=== PATIENT | male | born 1985 | race Caucasian/White ===

== ENCOUNTER 2021-08-12 09:42 | Inpatient (IN) | payer OTHER ==
[2021-08-12 10:42] VITALS: BMI 35.4
[2021-08-12] MEDS ORDERED: MENTHOL/PHENOL 1 EACH UD MM PRN (13:05)
[2021-08-12] MEDS ORDERED: METHOCARBAMOL 500 MG TABLET PO PRN (13:05)
[2021-08-12] MEDS ORDERED: MAGNESIUM CITRATE 300 ML BOTTLE PO PRN (13:05)
[2021-08-12] MEDS ORDERED: LORazepam 1 MG TABLET PO PRN (13:05)
[2021-08-12] MEDS ORDERED: MAGNESIUM HYDROX 2400MG/30ML ORAL SUSPENSION 30 ML CUP PO PRN (13:05)
[2021-08-12] MEDS ORDERED: ONDANSETRON *ODT* 4 MG TABLET SL PRN (13:05)
[2021-08-12] MEDS ORDERED: ACETAMINOPHEN 325 MG TABLET (FP) PO PRN ×2 (13:05)
[2021-08-12] MEDS ORDERED: IBUPROFEN 400 MG TABLET (FP) PO PRN (13:05)
[2021-08-12] MEDS ORDERED: MAG HYDROX/AL HYDROX/SIMETH 30 ML UNIT-DOSE CUP PO PRN (13:05)
[2021-08-12] MEDS ORDERED: BISMUTH SUBSALICYLATE 524 MG/30 ML PO PRN (13:05)
[2021-08-12] MEDS: hydrOXYzine PAMOATE 25 MG CAPSULE (FP) PO SCH ×3 (15:26→22:13)
[2021-08-12] MEDS: LORazepam 2 MG TABLET PO SCH ×2 (17:55→22:13)
[2021-08-12] MEDS: MELATONIN 5 MG TABLETS PO SCH (22:13)
[2021-08-12] MEDS: THIAMINE HCL 100 MG TABLET (FP) PO SCH (22:13)
[2021-08-13] MEDS: LORazepam 2 MG TABLET PO SCH ×4 (05:25→22:25)
[2021-08-13] MEDS: hydrOXYzine PAMOATE 25 MG CAPSULE (FP) PO SCH ×6 (05:25→22:25)
[2021-08-13] MEDS: LOSARTAN 50MG/HCTZ 12.5MG 1 TAB PO SCH (10:14)
[2021-08-13] MEDS: PRENATAL VITAMINS W/ FOLIC ACID TABLET (FP) PO SCH (10:14)
[2021-08-13 11:33] LABS: HEMATOCRIT 36.1 % (35.4-49); HEMOGLOBIN 12.7 GM/dL (11.7-16.9); MCH 33.2 pg (25.7-33.7); MCHC 35.1 g/dl (32.0-35.9); MEAN CELL VOLUME 94.6 fl (80-96); MEAN PLT VOLUME 8.1 fl (7.5-11.1); PLATELET COUNT 125 10^3/uL (134-434); RBC 3.82 M/mm3 (4.00-5.60); RDW 14.2 % (11.9-15.9); WHITE BLOOD COUNT 2.9 K/mm3 (4.0-10.0)
[2021-08-13 11:54] LABS: CALCIUM 8.9 mg/dL (8.5-10.1)
[2021-08-13 11:55] LABS: ALBUMIN 3.5 g/dl (3.4-5.0); BLOOD UREA NITROGEN 5.5 mg/dL (7-18)
[2021-08-13 11:58] LABS: CREATININE 0.9 mg/dL (0.55-1.3)
[2021-08-13 11:59] LABS: BILIRUBIN,TOTAL 0.9 mg/dL (0.2-1)
[2021-08-13 12:00] LABS: TOT PROT 7.2 g/dl (6.4-8.2)
[2021-08-13] MEDS: THIAMINE HCL 100 MG TABLET (FP) PO SCH (22:25)
[2021-08-13] MEDS: MELATONIN 5 MG TABLETS PO SCH (22:26)
[2021-08-14] MEDS: LORazepam 1 MG TABLET PO SCH ×4 (05:40→22:09)
[2021-08-14] MEDS: hydrOXYzine PAMOATE 25 MG CAPSULE (FP) PO SCH ×5 (05:40→22:09)
[2021-08-14] MEDS: LOSARTAN 50MG/HCTZ 12.5MG 1 TAB PO SCH (10:31)
[2021-08-14] MEDS: PRENATAL VITAMINS W/ FOLIC ACID TABLET (FP) PO SCH (10:31)
[2021-08-14] MEDS: risperiDONE 2 MG TABLET PO SCH (10:31)
[2021-08-14] MEDS: SERTRALINE HCL 50 MG TABLET (FP) PO SCH (10:31)
[2021-08-14] MEDS: MELATONIN 5 MG TABLETS PO SCH (22:11)
[2021-08-14] MEDS: THIAMINE HCL 100 MG TABLET (FP) PO SCH (22:12)
[2021-08-15] MEDS ORDERED: LORazepam 0.5 MG TABLET PO PRN
[2021-08-15] MEDS: LORazepam 0.5 MG TABLET PO SCH ×2 (05:25→10:20)
[2021-08-15] MEDS: hydrOXYzine PAMOATE 25 MG CAPSULE (FP) PO SCH ×3 (05:26→13:16)
[2021-08-15 09:19] VITALS: TEMP 96.8
[2021-08-15] MEDS: risperiDONE 2 MG TABLET PO SCH (10:19)
[2021-08-15] MEDS: SERTRALINE HCL 50 MG TABLET (FP) PO SCH (10:19)
[2021-08-15] MEDS: LOSARTAN 50MG/HCTZ 12.5MG 1 TAB PO SCH (10:19)
[2021-08-15] MEDS: PRENATAL VITAMINS W/ FOLIC ACID TABLET (FP) PO SCH (10:19)
[2021-08-15 13:30] VITALS: BP 137/98; PULSE 111
[2021-08-16] MEDS ORDERED: LORazepam 0.5 MG TABLET PO ONE (05:00)
== END 2021-08-15 13:59 | disposition home or self-care (01) | DRG 775 ==
LOC: YASAS 09:42 → Y3N 13:33
PROVIDERS: ADMIT Allergy & Immunology; ATTEND Allergy & Immunology
PROC: HZ2ZZZZ Detoxification Services for Substance Abuse Treatment (ICD-10-PCS; principal; 2021-08-12)
DX: F10.230 Alcohol dependence with withdrawal, uncomplicated (principal); F25.9 Schizoaffective disorder, unspecified; F41.9 Anxiety disorder, unspecified; F32.9 Major depressive disorder, single episode, unspecified; I10 Essential (primary) hypertension; E78.5 Hyperlipidemia, unspecified; E78.00 Pure hypercholesterolemia, unspecified; D72.819 Decreased white blood cell count, unspecified; R74.01 Elevation of levels of liver transaminase levels; E66.9 Obesity, unspecified; Z68.35 Body mass index [BMI] 35.0-35.9, adult; Z86.59 Personal history of other mental and behavioral disorders; Z56.0 Unemployment, unspecified; Z91.018 Allergy to other foods
CPT/HCPCS: 36415; 80053; 85027; 86780; C9803; U0003; U0005

== ENCOUNTER 2021-12-20 18:19 | Inpatient (IN) | payer OTHER ==
[2021-12-20 20:07] VITALS: BMI 35.2
[2021-12-20] MEDS ORDERED: BISMUTH SUBSALICYLATE 524 MG/30 ML PO PRN (20:56)
[2021-12-20] MEDS ORDERED: METHOCARBAMOL 500 MG TABLET PO PRN (20:56)
[2021-12-20] MEDS ORDERED: MAGNESIUM CITRATE 300 ML BOTTLE PO PRN (20:56)
[2021-12-20] MEDS ORDERED: MAG HYDROX/AL HYDROX/SIMETH 30 ML UNIT-DOSE CUP PO PRN (20:56)
[2021-12-20] MEDS ORDERED: LORazepam 1 MG TABLET PO PRN (20:56)
[2021-12-20] MEDS ORDERED: NICOTINE 10 MG CARTRIDGE (INHALER) IH PRN (20:56)
[2021-12-20] MEDS ORDERED: IBUPROFEN 400 MG TABLET (FP) PO PRN (20:56)
[2021-12-20] MEDS ORDERED: MAGNESIUM HYDROX 2400MG/30ML ORAL SUSPENSION 30 ML CUP PO PRN (20:56)
[2021-12-20] MEDS ORDERED: ACETAMINOPHEN 325 MG TABLET (FP) PO PRN ×2 (20:56)
[2021-12-20] MEDS ORDERED: ONDANSETRON *ODT* 4 MG TABLET SL PRN (20:56)
[2021-12-20] MEDS ORDERED: MENTHOL/PHENOL 1 EACH UD MM PRN (20:56)
[2021-12-20] MEDS: LORazepam 2 MG TABLET PO SCH (23:08)
[2021-12-20] MEDS: THIAMINE HCL 100 MG TABLET (FP) PO SCH (23:10)
[2021-12-20] MEDS: MELATONIN 5 MG TABLETS PO SCH (23:10)
[2021-12-20] MEDS: hydrOXYzine PAMOATE 25 MG CAPSULE (FP) PO SCH (23:10)
[2021-12-21] MEDS: LORazepam 2 MG TABLET PO SCH ×4 (05:15→22:09)
[2021-12-21] MEDS: hydrOXYzine PAMOATE 25 MG CAPSULE (FP) PO SCH ×5 (05:15→22:09)
[2021-12-21 10:28] LABS: HEMATOCRIT 37.5 % (35.4-49); HEMOGLOBIN 12.4 GM/dL (11.7-16.9); MCH 31.1 pg (25.7-33.7); MCHC 33.1 g/dl (32.0-35.9); MEAN PLT VOLUME 7.8 fl (7.5-11.1); PLATELET COUNT 129 10^3/uL (134-434); RBC 3.99 M/mm3 (4.00-5.60); RDW 16.8 % (11.9-15.9); WHITE BLOOD COUNT 3.1 K/mm3 (4.0-10.0)
[2021-12-21] MEDS: PRENATAL VITAMINS W/ FOLIC ACID TABLET (FP) PO SCH (10:29)
[2021-12-21 10:42] LABS: CALCIUM 8.9 mg/dL (8.5-10.1)
[2021-12-21 10:43] LABS: ALBUMIN 3.6 g/dl (3.4-5.0); BLOOD UREA NITROGEN 5.9 mg/dL (7-18)
[2021-12-21 10:45] LABS: CREATININE 0.8 mg/dL (0.55-1.3)
[2021-12-21 10:46] LABS: TOT PROT 7.1 g/dl (6.4-8.2)
[2021-12-21 10:47] LABS: BILIRUBIN,TOTAL 0.7 mg/dL (0.2-1)
[2021-12-21] MEDS ORDERED: risperiDONE 2 MG TABLET PO SCH (22:00)
[2021-12-21] MEDS: THIAMINE HCL 100 MG TABLET (FP) PO SCH (22:09)
[2021-12-21] MEDS: MELATONIN 5 MG TABLETS PO SCH (22:09)
[2021-12-22] MEDS: LORazepam 1 MG TABLET PO SCH ×2 (05:55→10:53)
[2021-12-22] MEDS: hydrOXYzine PAMOATE 25 MG CAPSULE (FP) PO SCH ×2 (05:55→10:52)
[2021-12-22] MEDS ORDERED: SERTRALINE HCL 50 MG TABLET (FP) PO SCH (10:00)
[2021-12-22] MEDS: PRENATAL VITAMINS W/ FOLIC ACID TABLET (FP) PO SCH (10:52)
[2021-12-22 13:08] VITALS: PULSE 105; TEMP 96.8
[2021-12-22 13:11] VITALS: BP 157/98
[2021-12-23] MEDS ORDERED: LORazepam 0.5 MG TABLET PO PRN
[2021-12-23] MEDS ORDERED: LORazepam 0.5 MG TABLET PO SCH (05:00)
[2021-12-24] MEDS ORDERED: LORazepam 0.5 MG TABLET PO ONE (05:00)
== END 2021-12-22 13:11 | disposition left against medical advice (07) | DRG 770 ==
LOC: YASAS 18:19 → Y3N 21:39
PROVIDERS: ADMIT Allergy & Immunology; ATTEND Allergy & Immunology
PROC: HZ2ZZZZ Detoxification Services for Substance Abuse Treatment (ICD-10-PCS; principal; 2021-12-20)
DX: F10.230 Alcohol dependence with withdrawal, uncomplicated (principal); F10.24 Alcohol dependence with alcohol-induced mood disorder; F25.0 Schizoaffective disorder, bipolar type; F41.0 Panic disorder [episodic paroxysmal anxiety]; I10 Essential (primary) hypertension; E78.5 Hyperlipidemia, unspecified; K76.0 Fatty (change of) liver, not elsewhere classified; J30.2 Other seasonal allergic rhinitis; E66.9 Obesity, unspecified; Z68.35 Body mass index [BMI] 35.0-35.9, adult; Z91.018 Allergy to other foods
CPT/HCPCS: 36415; 80053; 85027; 86780; C9803; U0003; U0005

== ENCOUNTER 2023-02-10 13:18 | Inpatient (IN) | payer OTHER ==
[2023-02-10 13:59] VITALS: BMI 34.8
[2023-02-10] MEDS ORDERED: IBUPROFEN 600 MG TABLET (FP) PO PRN (14:36)
[2023-02-10] MEDS ORDERED: POLYETHYLENE GLYCOL (HEALTHYLAX) 3350 17 GM PACKET PO PRN (14:36)
[2023-02-10] MEDS ORDERED: MAG HYDROX/AL HYDROX/SIMETH 30 ML UNIT-DOSE CUP PO PRN (14:36)
[2023-02-10] MEDS ORDERED: BENZONATATE 200 MG CAPSULE PO PRN (14:36)
[2023-02-10] MEDS ORDERED: ONDANSETRON *ODT* 4 MG TABLET SL PRN (14:36)
[2023-02-10] MEDS ORDERED: DICYCLOMINE HCL 10 MG CAPSULE PO PRN (14:36)
[2023-02-10] MEDS ORDERED: LORazepam 1 MG TABLET PO PRN (14:36)
[2023-02-10] MEDS ORDERED: BISMUTH SUBSALICYLATE 262 MG/15 ML BTL PO PRN (14:36)
[2023-02-10] MEDS ORDERED: MAGNESIUM HYDROX 2400MG/30ML ORAL SUSPENSION 30 ML CUP PO PRN (14:36)
[2023-02-10] MEDS ORDERED: IBUPROFEN 400 MG TABLET (FP) PO PRN (14:36)
[2023-02-10] MEDS ORDERED: BENZOCAINE/MENTHOL (CHLORASEPTIC ) LOZENGE MM PRN (14:36)
[2023-02-10] MEDS ORDERED: LOPERAMIDE HCL 2 MG CAPSULE PO PRN (14:36)
[2023-02-10] MEDS ORDERED: guaiFENesin 600 MG TABLET.ER (FP) PO PRN (14:36)
[2023-02-10] MEDS ORDERED: NICOTINE 10 MG CARTRIDGE (INHALER) IH PRN (14:36)
[2023-02-10] MEDS ORDERED: ACETAMINOPHEN 325 MG TABLET (FP) PO PRN (14:36)
[2023-02-10] MEDS ORDERED: LORazepam 1 MG TABLET ONE (15:35)
[2023-02-10 17:12] LABS: ALBUMIN 3.8 g/dl (3.4-5.0); BLOOD UREA NITROGEN 6.4 mg/dL (7-18)
[2023-02-10 17:15] LABS: CREATININE 1.1 mg/dL (0.55-1.3)
[2023-02-10 17:16] LABS: TOT PROT 8.2 g/dl (6.4-8.2)
[2023-02-10 17:17] LABS: BILIRUBIN,TOTAL 1.1 mg/dL (0.2-1)
[2023-02-10 17:22] LABS: HEMATOCRIT 38.7 % (35.4-49); HEMOGLOBIN 13.6 GM/dL (11.7-16.9); MCH 31.6 pg (25.7-33.7); MCHC 35.1 g/dl (32.0-35.9); PLATELET COUNT 167 10^3/uL (134-434); RBC 4.31 M/mm3 (4.00-5.60); RDW 14.6 % (11.9-15.9); WHITE BLOOD COUNT 4.7 K/mm3 (4.0-10.0)
[2023-02-10] MEDS: LORazepam 2 MG TABLET PO SCH ×2 (18:00→22:35)
[2023-02-10] MEDS: CLOTRIMAZOLE 1% CREAM TP SCH (22:35)
[2023-02-10] MEDS: THIAMINE HCL 100 MG TABLET (FP) PO SCH (22:35)
[2023-02-10] MEDS: LORATADINE 10 MG TABLET PO SCH (22:35)
[2023-02-10] MEDS: MELATONIN 5 MG TABLETS PO SCH (22:38)
[2023-02-11] MEDS: LORazepam 2 MG TABLET PO SCH ×4 (05:29→22:25)
[2023-02-11] MEDS: METHOCARBAMOL 500 MG TABLET PO PRN (10:06)
[2023-02-11] MEDS: PRENATAL VITAMINS W/ FOLIC ACID TABLET (FP) PO SCH (10:06)
[2023-02-11] MEDS: CLOTRIMAZOLE 1% CREAM TP SCH ×2 (10:07→22:26)
[2023-02-11] MEDS: hydrOXYzine PAMOATE 25 MG CAPSULE (FP) PO PRN (10:07)
[2023-02-11] MEDS: LOSARTAN 50MG/HCTZ 12.5MG 1 TAB PO SCH (13:31)
[2023-02-11] MEDS: LACTULOSE 20 GM/30 ML UDC (FOR ORAL USE ONLY) PO SCH ×3 (14:08→22:26)
[2023-02-11] MEDS: LORATADINE 10 MG TABLET PO SCH (22:25)
[2023-02-11] MEDS: THIAMINE HCL 100 MG TABLET (FP) PO SCH (22:25)
[2023-02-11] MEDS: MELATONIN 5 MG TABLETS PO SCH (22:27)
[2023-02-12] MEDS: LORazepam 1 MG TABLET PO SCH ×4 (05:26→22:17)
[2023-02-12] MEDS: hydrOXYzine PAMOATE 25 MG CAPSULE (FP) PO PRN (05:27)
[2023-02-12] MEDS: PRENATAL VITAMINS W/ FOLIC ACID TABLET (FP) PO SCH (10:20)
[2023-02-12] MEDS: METHOCARBAMOL 500 MG TABLET PO PRN (10:20)
[2023-02-12] MEDS: LOSARTAN 50MG/HCTZ 12.5MG 1 TAB PO SCH (10:20)
[2023-02-12] MEDS: LACTULOSE 20 GM/30 ML UDC (FOR ORAL USE ONLY) PO SCH ×4 (10:20→22:20)
[2023-02-12] MEDS: CLOTRIMAZOLE 1% CREAM TP SCH ×2 (10:21→22:18)
[2023-02-12] MEDS: LORATADINE 10 MG TABLET PO SCH (22:17)
[2023-02-12] MEDS: THIAMINE HCL 100 MG TABLET (FP) PO SCH (22:17)
[2023-02-12] MEDS: MELATONIN 5 MG TABLETS PO SCH (22:18)
[2023-02-13] MEDS ORDERED: LORazepam 0.5 MG TABLET PO PRN
[2023-02-13] MEDS: LORazepam 0.5 MG TABLET PO SCH ×4 (05:43→22:04)
[2023-02-13] MEDS: hydrOXYzine PAMOATE 25 MG CAPSULE (FP) PO PRN ×2 (05:45→22:56)
[2023-02-13] MEDS: PRENATAL VITAMINS W/ FOLIC ACID TABLET (FP) PO SCH (10:31)
[2023-02-13] MEDS: METHOCARBAMOL 500 MG TABLET PO PRN (10:32)
[2023-02-13] MEDS: LOSARTAN 50MG/HCTZ 12.5MG 1 TAB PO SCH (10:32)
[2023-02-13] MEDS: CLOTRIMAZOLE 1% CREAM TP SCH ×2 (10:33→22:05)
[2023-02-13] MEDS: LACTULOSE 20 GM/30 ML UDC (FOR ORAL USE ONLY) PO SCH ×4 (10:35→22:03)
[2023-02-13] MEDS ORDERED: TRIMETHOBENZAMIDE HCL 200MG/2ML INJ IM PRN (11:21)
[2023-02-13 11:24] LABS: CALCIUM 8.9 mg/dL (8.5-10.1)
[2023-02-13 11:25] LABS: ALBUMIN 3.6 g/dl (3.4-5.0); BLOOD UREA NITROGEN 7.2 mg/dL (7-18)
[2023-02-13 11:28] LABS: CREATININE 0.8 mg/dL (0.55-1.3)
[2023-02-13 11:30] LABS: BILIRUBIN,TOTAL 1.5 mg/dL (0.2-1); TOT PROT 7.7 g/dl (6.4-8.2)
[2023-02-13] MEDS: METOPROLOL TARTRATE 25 MG TABLET (FP) PO SCH (13:41)
[2023-02-13] MEDS: LORATADINE 10 MG TABLET PO SCH (22:03)
[2023-02-13] MEDS: THIAMINE HCL 100 MG TABLET (FP) PO SCH (22:03)
[2023-02-13] MEDS: MELATONIN 5 MG TABLETS PO SCH (22:05)
[2023-02-14] MEDS ORDERED: LORazepam 0.5 MG TABLET PO ONE (05:00)
[2023-02-14 05:54] VITALS: RESP 18
[2023-02-14 09:52] VITALS: BP 109/66; PULSE 84; TEMP 97.5
[2023-02-14] MEDS: PRENATAL VITAMINS W/ FOLIC ACID TABLET (FP) PO SCH (10:29)
[2023-02-14] MEDS: METOPROLOL TARTRATE 25 MG TABLET (FP) PO SCH (10:29)
[2023-02-14] MEDS: LACTULOSE 20 GM/30 ML UDC (FOR ORAL USE ONLY) PO SCH (10:29)
[2023-02-14] MEDS: LOSARTAN 50MG/HCTZ 12.5MG 1 TAB PO SCH (10:29)
[2023-02-14] MEDS: CLOTRIMAZOLE 1% CREAM TP SCH (10:29)
== END 2023-02-14 09:35 | disposition home or self-care (01) | DRG 775 ==
LOC: YASAS 13:18 → Y6N 15:19
PROVIDERS: ADMIT Allergy & Immunology; ATTEND Surgery
PROC: HZ2ZZZZ Detoxification Services for Substance Abuse Treatment (ICD-10-PCS; principal; 2023-02-10)
DX: F10.230 Alcohol dependence with withdrawal, uncomplicated (principal); F41.9 Anxiety disorder, unspecified; F32.A Depression, unspecified; I10 Essential (primary) hypertension; E78.5 Hyperlipidemia, unspecified; K76.0 Fatty (change of) liver, not elsewhere classified; R79.89 Other specified abnormal findings of blood chemistry; R74.8 Abnormal levels of other serum enzymes; E66.9 Obesity, unspecified; Z68.34 Body mass index [BMI] 34.0-34.9, adult
CPT/HCPCS: 36415; 80053; 82140; 83036; 85027; 86780; C9803-CS; Q0162; U0003; U0005